=== PATIENT | female | born 1960 | race Asian ===

== ENCOUNTER 2017-04-03 22:53 | Emergency (ER) | payer OTHER ==
[~2017-04-03] VITALS: Ht 165.1 cm; Wt 56.0 kg
[2017-04-03 23:15] VITALS: Ht 165.1 cm; Wt 56.0 kg
[2017-04-04] MEDS ORDERED: hydrALAzine 20 MG INJ IV ONE (01:00)
[2017-04-04 01:27] LABS: BASOPHILS % 0.4 % (0.0-2.0); EOSINOPHILS # 0.2 10^3/ul (0.0-0.5); EOSINOPHILS % 2.9 % (0.0-7.0); HEMATOCRIT 35.6 % (37.0-47.0); HEMOGLOBIN 12.3 g/dl (12.0-16.0); LYMPHOCYTES # 3.6 10^3/ul (0.8-2.9); LYMPHOCYTES % 45.3 % (15.0-51.0); MEAN CORPUSCULAR HEMOGLOBIN 29.3 pg (29.0-33.0); MEAN CORPUSCULAR HGB CONC 34.6 g/dl (32.0-37.0); MEAN CORPUSCULAR VOLUME 84.8 fl (82.0-101.0); MONOCYTE # 0.5 10^3/ul (0.3-0.9); MONOCYTES % 6.7 % (0.0-11.0); NEUTROPHIL # 3.5 10^3/ul (1.6-7.5); NEUTROPHILS % 44.4 % (39.0-77.0); PLATELET COUNT 232 10^3/UL (140-415); RED CELL DISTRIBUTION WIDTH 12.1 % (11.5-14.5); WHITE BLOOD COUNT 7.9 10^3/ul (4.8-10.8)
[2017-04-04 01:42] LABS: INR 0.9; PARTIAL THROMBOPLASTIN TIME 32.4 Sec (25.0-35.0); PROTIME 12.1 Sec (12.2-14.2); PT RATIO 0.9
[2017-04-04 01:47] LABS: ANION GAP 10 (8-16); BLOOD UREA NITROGEN 15 mg/dl (7-20); CALCIUM 9.7 mg/dl (8.4-10.2); CARBON DIOXIDE 29 mmol/L (21-31); CHLORIDE 99 mmol/L (97-110); CREATININE 0.64 mg/dl (0.44-1.00); GLUCOSE 220 mg/dl (70-220); POTASSIUM 4.2 mmol/L (3.5-5.1); SODIUM 134 mmol/L (135-144)
[2017-04-04 02:06] LABS: TROPONIN-I < 0.012 ng/ml (0.00-0.12)
--- NOTE | 2017-04-04 02:07 | ERD ---
ER Documentation Chief Complaint Date/Time DATE: 04/04/17 TIME: 02:05 Chief Complaint LOPEZ and dizzy since this am. Blood pressure in 220's at this time HPI 57-year-old female, headache and dizziness as exam. Blood pressures been elevated for the past 2 days. Headache is mild to moderate in intensity. No fevers no chills no focal neurological complaints no other current issues ROS All systems reviewed and are negative except as per history of present illness. Allergies Allergies: Coded Allergies: No Known Allergy (Unverified , 04/03/17) PMhx/Soc Medical and Surgical Hx: pt denies Surgical Hx History of Surgery: No Anesthesia Reaction: No Hx Neurological Disorder: No Hx Respiratory Disorders: No Hx Cardiac Disorders: Yes (HTN) Hx Psychiatric Problems: No Hx Miscellaneous Medical Probl: Yes (DM) Hx Alcohol Use: No Hx Substance Use: No Hx Tobacco Use: No Smoking Status: Never smoker Physical Exam Vitals Vital Signs Date Time Temp Pulse Resp B/P Pulse Ox O2 Delivery O2 Flow Rate FiO2 04/03/17 23:15 97.9 72 18 240/113 100 Physical Exam Const: [] Head: Atraumatic Eyes: Normal Conjunctiva ENT: Normal External Ears, Nose and Mouth. Neck: Full range of motion..~ No meningismus. Resp: Clear to auscultation bilaterally Cardio: Regular rate and rhythm, no murmurs Abd: Soft, non tender, non distended. Normal bowel sounds Skin: No petechiae or rashes Back: No midline or flank tenderness Ext: No cyanosis, or edema Neur: Awake and alert Psych: Normal Mood and Affect Result Diagram: 04/04/17 0059 04/04/17 0059 Results 24 hrs Laboratory Tests Test 04/04/17 00:59 White Blood Count 7.910^3/ul Red Blood Count 4.2010^6/ul Hemoglobin 12.3g/dl Hematocrit 35.6% Mean Corpuscular Volume 84.8fl Mean Corpuscular Hemoglobin 29.3pg Mean Corpuscular Hemoglobin Concent 34.6g/dl Red Cell Distribution Width 12.1% Platelet Count 98090^3/UL Mean Platelet Volume 12.0fl Neutrophils % 44.4% Lymphocytes % 45.3% Monocytes % 6.7% Eosinophils % 2.9% Basophils % 0.4% Nucleated Red Blood Cells % 0.0/100WBC Neutrophils # 3.510^3/ul Lymphocytes # 3.610^3/ul Monocytes # 0.510^3/ul Eosinophils # 0.210^3/ul Basophils # 0.010^3/ul Nucleated Red Blood Cells # 0.010^3/ul Prothrombin Time 12.1Sec Prothrombin Time Ratio 0.9 INR International Normalized Ratio 0.90 Activated Partial Thromboplast Time 32.4Sec Sodium Level 134mmol/L Potassium Level 4.2mmol/L Chloride Level 99mmol/L Carbon Dioxide Level 29mmol/L Anion Gap 10 Blood Urea Nitrogen 15mg/dl Creatinine 0.64mg/dl Glucose Level 220mg/dl Calcium Level 9.7mg/dl Troponin I Pending Current Medications Medications (Trade) Dose Ordered Sig/Misti Route PRN Reason Start Time Stop Time Status Last Admin Dose Admin Hydralazine HCl (Apresoline) 20 mg ONCE ONCE IV 04/04/17 01:00 04/04/17 01:01 DC 04/04/17 01:02 Procedures/MDM EKG: Rate/Rhythm: [Normal Sinus Rhythm] QRS, ST, T-waves: [No changes consistent w/ acute ischemia] Impression: [No evidence of ischemia or arrhythmia] Chest X-ray 1V Interpreted by me: Soft Tissue: No acute abnormalities Bones: No acute abnormalities Mediastinum/Cardiac Silhouette/Lungs: [No acute abnormalities] Patient's neurologic symptoms have stabilized while they have been evaluated in the department and are appropriate for outpatient work up. No e/o meningitis, intracranial bleed, seizure, stroke. Patient's blood pressure was elevated (>120/80) but appears stable without evidence of hypertension emergency or urgency. The patient was counseled about the risks of hypertension and urged to pursue outpatient monitoring and therapy within a week with their primary care physician. Departure Diagnosis: Primary Impression: Headache Headache type: unspecified Headache chronicity pattern: unspecified pattern Intractability: not intractable Qualified Code: R51 - Nonintractable headache, unspecified chronicity pattern, unspecified headache type Additional Impression: Accelerated hypertension Condition: Stable GAETANOJOHNMARCMAICOLLuan Apr 04, 2017 02:07
[2017-04-04] MEDS ORDERED: HYDR-3672 PO (02:09)
[2017-04-04] MEDS ORDERED: METF500T4 PO (02:36)
[2017-04-04] MEDS ORDERED: LISI-313 PO (02:36)
[2017-04-04 02:58] VITALS: BP 128/94; PULSE 85; RESP 16; TEMP 98
--- NOTE | 2017-04-04 03:01 | RADRPT ---
PROCEDURE: CT head, without contrast. CLINICAL INDICATION: Headache. TECHNIQUE: Noncontrast CT examination of the head, with axial, sagittal and coronal reformatted im ages. Automated dose exposure control was employed. CTDI: 45.01 and DLP: 720.23 COMPARISON: None. FINDINGS: Mild chronic changes of atrophy and small vessel disease of white matter. No acute hemorrhage. Subarachnoid spaces are substantially preserved and symmetric. Ventricles ar e unremarkable. No mass effect. Heard-white matter distinction is preserved without evident decreased attenuation t o suggest acute or recent infarct. Sinuses and osseous structures are unremarkable. IMPRESSION: Mild chronic changes of atrophy and small vessel disease of white matter, and otherwise, no acute pr ocess in the head. RPTAT: [facility] Physician Fozia Date Time Electronically viewed and signed by Physician Fozia on 04/04/2017 03:00 RS/
--- NOTE | 2017-04-04 18:14 | RADRPT ---
PROCEDURE: XR Chest. CLINICAL INDICATION: Headache. TECHNIQUE: Single frontal view of the chest. COMPARISON: None. FINDINGS: Mild cardiomegaly. Left lateral lung base is somewhat obscured by patient body habitus. Differential considerations include small left pleural effusion versus atelectasis at the costophrenic angle. Th e lungs are otherwise clear. No signs of pneumothorax are seen. The osseous structures and soft tiss ues are unremarkable. IMPRESSION: Small left pleural effusion versus atelectasis at the left costophrenic angle. RPTAT: [facility] Physician Fozia Date Time Electronically viewed and signed by Physician Fozia on 04/04/2017 18:14 RS/
== END 2017-04-04 02:57 | disposition home or self-care (01) ==
LOC: E/R 22:53
DX: R51 Headache (principal); I10 Essential (primary) hypertension; E11.9 Type 2 diabetes mellitus without complications; R07.9 Chest pain, unspecified
CPT/HCPCS: 36415; 70450; 71010; 80048; 84484; 85025; 85610; 85730; 93005; 96374; J0360; Z7502; Z7610